=== PATIENT | male | born 1950 | race Caucasian/White ===

== ENCOUNTER 2020-05-22 20:42 | Inpatient (IN) | payer OTHER ==
[~2020-05-22] VITALS: Ht 170.2 cm; Wt 100.2 kg
[2020-05-22 20:46] VITALS: BP 153/62
[2020-05-22 21:30] LABS: ABSOLUTE NEUTROPHILS 5.6 thou/uL (1.4-8.2); BASOPHILS 0.6 % (0.0-2.0); EOSINOPHILS 8.8 % (0.0-3.0); HEMATOCRIT 24.4 % (42.0-52.0); HEMOGLOBIN 7.3 gm/dL (14.0-18.0); MCH 19.6 pg (26.0-34.0); MCHC 29.8 g/dL (28.0-37.0); MCV 65.7 fL (80.0-100.0); MONOCYTES 9.7 % (1.0-8.0); PLATELET COUNT 281 thou/uL (150-400); POLYS 58.9 % (36.0-66.0); RBC 3.72 mil/uL (4.50-6.00); RDW 22.4 % (10.5-14.5); WBC 9.5 thou/uL (4.0-11.0)
[2020-05-22 21:35] LABS: CALCIUM 9.4 mg/dL (8.5-10.1); CREATININE 2.6 mg/dL (0.7-1.3); POTASSIUM 5.4 mmol/L (3.5-5.1)
[2020-05-22 21:40] LABS: INR 1.1; PROTIME 11.6 Seconds (9.3-11.4)
[2020-05-22 21:41] LABS: ALBUMIN 3.3 g/dL (3.4-5.0); TOTAL BILIRUBIN 0.4 mg/dL (0.2-1.0); TOTAL PROTEIN 8.2 g/dL (6.4-8.2)
[2020-05-22] MEDS ORDERED: PROTONIX40 M2 PO (22:14)
[2020-05-22] MEDS ORDERED: LOPROX90 GM TOP (22:15)
[2020-05-22] MEDS ORDERED: KETOCONAZOLE 2%30 GM TOP (22:15)
[2020-05-22] MEDS ORDERED: FLONASE 0.05%50 MCG NARES (22:16)
[2020-05-22] MEDS ORDERED: ZYRTEC10 M5 PO (22:17)
[2020-05-22] MEDS ORDERED: OCUVITE ADULT1 EAC1 PO (22:17)
[2020-05-22 22:21] LABS: MICROCYTES 3+
[2020-05-22 22:23] LABS: HYPOCHROMASIA 3+; OVALOCYTES 1+; SCHISTOCYTES FEW; TARGET CELLS FEW
[2020-05-23] MEDS ORDERED: OCUVITE ADULT1 EAC1 PO (01:13)
[2020-05-23] MEDS ORDERED: LIPITOR 20 MG T20 M1 PO (01:13)
[2020-05-23] MEDS ORDERED: GLUMETZA500 PO (01:14)
[2020-05-23] MEDS ORDERED: LISINOPRIL20 MG PO (01:14)
[2020-05-23] MEDS ORDERED: GLYBURIDE 5 MG T5 M1 PO (01:15)
[2020-05-23] MEDS ORDERED: CARVEDILOL25 MG PO (01:15)
[2020-05-23] MEDS ORDERED: FUROSEMIDE 20 M20 MG PO (01:16)
[2020-05-23] MEDS ORDERED: HYDRALAZINE 10M10 MG PO (01:17)
[2020-05-23] MEDS ORDERED: POTASSIUM20 PO (01:18)
[2020-05-23] MEDS ORDERED: B12 ACTIVE1000 MCG PO (01:18)
[2020-05-23] MEDS ORDERED: VITAMIN D325 MC3 PO (01:19)
[2020-05-23] MEDS ORDERED: VITAMIN C500 M2 PO (01:19)
[2020-05-23] MEDS ORDERED: NF PO (01:22)
[2020-05-23] MEDS ORDERED: NF (01:22)
[2020-05-23 04:28] LABS: MCHC 30.9 g/dL (28.0-37.0); MCV 64.7 fL (80.0-100.0); RBC 3.08 mil/uL (4.50-6.00); RDW 22.7 % (10.5-14.5)
[2020-05-23 04:34] LABS: HEMATOCRIT 19.9 % (42.0-52.0); HEMOGLOBIN 6.2 gm/dL (14.0-18.0)
[2020-05-23 04:43] LABS: CALCIUM 8.7 mg/dL (8.5-10.1); CREATININE 2.3 mg/dL (0.7-1.3)
[2020-05-23 05:14] VITALS: BP 132/53
[2020-05-23 13:40] VITALS: BP 126/39
--- NOTE | 2020-05-23 13:49 | NUR ---
69 y/o male presenting to the ED c/o rectal bleeding. Pt states when he eats or drinks anything it comes out as bloody diarrhea ~15 minutes later. Of note patient reports a weight loss of 75 pounds in the last year. COVID PCR is pending in the ED after being received in the lab at 1113. The patient has been admitted for a lower GI Bleed with rectal mass of questionable mass verse inflammation, ARF, PUD and Lay choley done . Of note patient was admitted with a HgB of 6.2 and has been transfused. The ED records the patient as A&O x4. The face sheet reveals that next of kin and notification democrat is Guicho Buckely at [phone]. Case Management will follow for discharge needs.
[2020-05-23 14:25] VITALS: BP 137/53
--- NOTE | 2020-05-23 17:51 | NUR ---
PT ARRIVED FROM ER APPROX 1430. PT A& OX4. DENIES PAIN. AT APPROX 1445 CRITICAL LAB RESULT READ TO NURSE OF COVID POSITIVE. PHYSICIAN NOTIFIED. MUCK MINER NOTIFIED. PT TO TX TO 353 ONCE BED AVAILABILITY. REPORT GIVEN TO 3W RN.
[2020-05-23 18:40] VITALS: BP 155/61
--- NOTE | 2020-05-23 18:41 | NUR ---
PT TRANSFERRED FROM [facility] CCU TO [facility], VITAL SIGNS COMPELETED, GOT PT SETTLE IN RROM. BOWEL PREP STARTED, PT EDUCATED TO FINISH ALL GOLYTELY FOR TMR PROCEDURE. UP AD MARCELINO TO BATHROOM. REPORT GIVEN TO GAS TORCH BRAZIER ROBERT
[2020-05-23 19:48] VITALS: BP 130/63
[2020-05-24] VITALS (8 sets, daily range): BP systolic 119–146; BP diastolic 51–61
[2020-05-24 05:50] LABS: HEMATOCRIT 23.9 % (42.0-52.0); HEMOGLOBIN 7.1 gm/dL (14.0-18.0); MCH 20.4 pg (26.0-34.0); MCHC 29.9 g/dL (28.0-37.0); MCV 68.3 fL (80.0-100.0); RBC 3.5 mil/uL (4.50-6.00)
--- NOTE | 2020-05-24 05:51 | NUR ---
PT UP TO BATHROOM AD MARCELINO FOR GI PREP. MIRALAX GIVEN YESTERDAY. PT HAS BEEN NPO SINCE 2400 FOR COLONOSCOPY THIS AM 05/24. CAREPLAN UPDATED AND INTERVENTIONS IN PLACE. VSS AND TELE SHOWS SR.
[2020-05-24 05:58] LABS: CALCIUM 8.9 mg/dL (8.5-10.1); CREATININE 2.2 mg/dL (0.7-1.3); POTASSIUM 4.9 mmol/L (3.5-5.1)
--- NOTE | 2020-05-24 13:45 | NUR ---
CARE ASSUMED AT 0700, WAITING FOR PT TO GO DOWN FOR COLONOSCOPY.PT CONTINUES TO BE ON ROOM AIR, NO SIGNS OF DISTRESS. PT CONTINUE TO BLOODY STOOL. WILL CONTINUE TO MONITOR.
--- NOTE | 2020-05-24 14:40 | NUR ---
INITIAL ASSESSMENT: SW reviewed chart and spoke with nursing and attending physician. Pt placed in Enhanced Isolation due to COVID-19. Pt is afebrile and not requiring O2. Pt to have colonoscopy today. GI and surgery following. Pt with colon mass. SW placed call to pt's room. No answer. Per chart, pt is alert/orientated x 4. Pt lives at home. SW will follow up with pt at a later time to discuss discharge planning.
[2020-05-25 03:44] VITALS: BP 137/57
[2020-05-25 06:29] LABS: HEMATOCRIT 23.9 % (42.0-52.0); HEMOGLOBIN 7.3 gm/dL (14.0-18.0); MCH 20.7 pg (26.0-34.0); MCHC 30.4 g/dL (28.0-37.0); RBC 3.52 mil/uL (4.50-6.00); RDW 29.4 % (10.5-14.5); WBC 8.4 thou/uL (4.0-11.0)
[2020-05-25 06:47] LABS: CREATININE 2.1 mg/dL (0.7-1.3); POTASSIUM 4.4 mmol/L (3.5-5.1)
--- NOTE | 2020-05-25 07:22 | NUR ---
DIET MOVED AND ALLOWED PT TO EAT. AT FULL DINNER AND ASKED FOR SANDWICH TRAY AT 0230. AT 0630 PT WAS GETTING UP AND DISLODGE PIV. REMOVED AND AWAITING ORDERS TO SEE IF PT WILL DC BEFORE STARTING A NEW SITE. PT REQUESTED NOT TO BE STUCK. VSS, AND BLOODY STOOLS STILL HAPPENING.
[2020-05-25 07:31] VITALS: BP 142/60
[2020-05-25 09:33] LABS: % SATURATION 7 % (20-39); IRON 17 ug/dL (65-175); TIBC 236 ug/dL (250-450)
[2020-05-25 09:40] LABS: ABSOLUTE RETIC COUNT 0.0516 10^6/uL; OBSERVED RETIC COUNT 1.5 % (0.6-2.6)
[2020-05-25 10:55] LABS: FOLIC ACID 2.6 ng/mL (8.6-58.9)
[2020-05-25 11:27] VITALS: BP 139/58
[2020-05-25] MEDS ORDERED: FOLIC ACID1 MG PO (12:05)
[2020-05-25] MEDS ORDERED: IRON325 M1 PO (12:05)
--- NOTE | 2020-05-25 14:31 | NUR ---
DISCHARGE NOTE: SW reviewed chart and spoke with nursing and attending physician. Pt is medically stable for discharge home today. Plan for outpatient follow up with Hem/Onc, GI and colorectal surgery. SW spoke with pt via phone to discuss discharge plan. Pt is alert/orientated x 4. Pt reports that his son will be providing transportation home when discharge. No discharge needs identified at this time. SW is available to assist should needs arise.
[2020-05-25 15:35] VITALS: BP 139/58
[2020-05-25 15:37] VITALS: BP 139/58
--- NOTE | 2020-05-25 15:50 | NUR ---
ASSUMED CARE OF PT AT 0700. PT AOX4 IN NO ACUTE DISTRESS VOICING NO COMPLAINTS OTHER THAN WANTING TO GO HOME. OK FOR DISCHARGE PER PHYSICIAN. PATIENT UNDERSTANDING OF DC EDUCATION. WAITING ON SON FOR TRANSPORT.
--- NOTE | 2020-05-30 18:06 | PATH ---
[facility] [address] [place] [address] PATHOLOGY RPT PROCEDURE Name: MANJINDER BUCKLEY Room #: 353-P DIS IN M.R.#: [id number] Admission: 05/22/20 Date of : 46 Discharge: 05/25/20 Report #: [id number] Path Case #: [id number] [facility] Accession Number: [id number] . 01 Material submitted: . PART A: cecum - BX CECUM POLYP PART B: colon - BX TRANSVERSE COLON POLYP. Modifiers: transverse PART C: rectum - BX RECTAL MASS BIOPSIES . 01 Clinical history: . GI BLEED, ANEMIA, RECTAL MASS . 02 Diagnosis: A. Polyp, cecum polyp, endoscopic biopsy: - Inflamed hyperplastic polyp. - Negative for dysplasia. . B. Polyp, transverse colon polyp, endoscopic biopsy: - Tubular adenoma admixed with a hyperplastic polyp in the background. - Negative for high grade dysplasia. . C. Mass, rectal mass, endoscopic biopsy: - INVASIVE MODERATELY-DIFFERENTIATED ADENOCARCINOMA. - Background of tubular adenoma with high grade dysplasia. . (IUV:mml; 05/26/2020) QLM 05/26/2020 1539 Local . 02 Comment: The adenocarcinoma was co-reviewed by Dr. Kerri Holguin and she concurs with my interpretation. . Findings of this case are telephoned to Ms. Chhaya Hart, nurse practitioner, for Dr. Jorge Buckley at 3:30 p.m. on 05/26/2020. . MSI markers (4 immunohistochemical stains) are ordered on block C and the results of these will be reported in an addendum to follow. . (IUV:mml; 05/26/2020) . 02 Addendum: . This addendum is issued subsequent to reviewing properly-controlled MSI markers (four immunohistochemical stains) performed on block C1: . MICROSATELLITE INSTABILITY REPORT (MSI): . Per [facility] Cancer Committee protocol, MSI markers are performed. [address] [address] PATHOLOGY RPT PROCEDURE Name: MANJINDER BUCKLEY Room #: 353-P DIS IN M.R.#: [id number] Admission: 05/22/20 Date of : 46 Discharge: 05/25/20 Report #: [id number] Path Case #: [id number] . Reason for testing: To evaluate for evidence of defective mismatch repair proteins. Method: Immunohistochemical staining for the presence or absence of protein expression of one or more of the following MMR protein markers: MLH1, MSH2, MSH6 and PMS2. Tumor type: Invasive adenocarcinoma (block C1) . Results: MLH1 -Preserved MSH2 -Preserved MSH6 -Preserved PMS2 -Preserved . Mismatch Repair Status:MMR Proficient (MMR-P) . Interpretation: . (MMR-P) All four MMR proteins are preserved within tumor cells. This suggests the presence of normal DNA mismatch repair function within the tumor and an observable defect in mismatch repair is not identified. The likelihood that this patient has an inherited germline mutation syndrome due to defective mismatch repair is reduced but not totally eliminated. If the patient has a strong personal or family history of HPNCC/Burns syndrome related cancers (colorectal, endometrial, gastric, ovarian, pancreatic, ureter/renal pelvis, biliary tract, brain, small bowel and Salvador-Osvaldo syndrome), consider MSI testing by PCR methodology. Suggest clinical correlation and follow up. . These test results are designed for screening purposes only and are useful tools in identifying cancer patients that are more likely to have Burns Syndrome related diagnoses. Tests should be interpreted in the context of clinical findings, family history and laboratory data. Abnormal IHC results for MMR protein expression are not considered diagnostic for Burns Syndrome. . (IUV:mml; 05/30/2020) . . Professional services performed by [facility] at [facility], [address] [place] [address]. Technical services performed by [facility] at [address] [place] [address], [address] [address]. [facility]/05/30/2020 Addendum Electronically Signed by Marilee Sharma MD, Pathologist . 02 Electronically signed: . Marilee Sharma MD, Pathologist NPI- [id number] [facility] [address] [place] [address] PATHOLOGY RPT PROCEDURE Name: MANJINDER BUCKLEY Room #: 353-P [facility] IN M.R.#: [id number] Admission: 05/22/20 Date of : 46 Discharge: 05/25/20 Report #: [id number] Path Case #: [id number] . 01 Gross description: . A. Received in formalin labeled "Manjinder Buckley, biopsy cecum polyp" is a fragment of colmenares-brown soft tissue measuring 0.4 x 0.4 x 0.4 cm. The surgical resection margin is inked black The specimen is submitted entirely in A1. . B. Received in formalin labeled "Manjinder Buckley biopsy transverse colon polyp" is a fragment of colmenares-brown soft tissue measuring 0.7 x 0.5 x 0.4 cm. The surgical resection margin is inked black. The specimen is submitted entirely in B1. . C. Received in formalin labeled "BuckleyManjinder biopsy rectal mass biopsies" are multiple fragments of colmenares-brown soft tissue measuring in aggregate 1.3 x 0.3 x 0.3 cm. The specimen is submitted entirely in C1.([facility]; 05/25/2020) GZA/GZA 05/25/2020 1735 Local . 02 Pathologist provided ICD-10: K63.5, D12.3, C20, D12.8 . 02 CPT . 755638, 395622, 075392, D08991, V32243 Specimen Comment: A courtesy copy of this report has been sent to [phone] Specimen Comment: [phone], Specimen Comment: Report sent to ,DR SERNA / DR NAYLOR Performed at: [address], [place] [id number] MD Sathya Scott MD Phone: [phone] Performed at: [address] [id number] MD Marilee Sharma MD Phone: [phone]
--- NOTE | 2020-06-01 07:10 | HC ---
[facility] [place] [address] [place] [address] CONSULTATION Name: SARAH ROBIN Room #: 353-P [facility] IN M.R.#: [id number] Admission: 05/22/20 Attend Phys: Sai Victoria MD Discharge: 05/25/20 Date of : 46 Report #: [id number] THIS REPORT FOR: cc: Georgina Mercado MD, Cassandra MD McKittrick,Shawn Stiles MD ~ DATE OF SERVICE: 05/25/2020 REASON FOR CONSULTATION: Rectal mass. HISTORY OF PRESENT ILLNESS: The patient is a very pleasant 69-year-old gentleman from the [place] area who has had about an 80-pound weight loss and also bloody diarrhea or diarrhea with some blood in it for several months. He underwent a colonoscopy yesterday on 05/24/2020 which found a firm rectal mass on digital rectal exam. There was also a 10 mm rectal mass, was circumferential partially obstructing appears to be malignant, was about the dentate line, but good views, difficult to obtain. Pathology is pending. The patient denies fevers or chills. Does have slightly queasy stomach, did have the blood in his urine and stool. He does have some weakness. His sugars from his diabetes have been running low. No new arm or leg swelling. PAST MEDICAL HISTORY: Notable for history of a GI bleed recently. Also, found to have renal insufficiency, unsure baseline. History of hypertension, history of hyperlipidemia, history of diabetes type 2, history of duodenal ulcer, history of hernia repairs times about 2-3, history of nephrolithiasis, status post stent and removal, history of cholecystectomy. SOCIAL HISTORY: No recent alcohol. I do not think he is a recent smoker. No street drugs. 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 He enjoys working with firearms and has ____ 30 or 40, everything from centerfire to rimfire to black powder. He has some quite unusual/rare guns. I think he is no longer . I am not sure if his had . He does have a son in town. Also, has 4 granddaughters, some are in high school, some are in college. CURRENT MEDICATIONS: Currently include pantoprazole 40 b.i.d. and Zofran p.r.n. and now iron sucrose 200 mg daily. LABORATORY DATA: Review notable for creatinine on admit 2.6, today 2.1. Transaminases normal. Iron panel pending. INR normal. White count 8.4, hemoglobin 7.3 on admit. MCV 65.7 on admit. RDW 22.4 on admit. Platelets 281 on admit. Differential nonacute. There were a few extra monocytes. Also, note CEA was 63.5. Coronavirus-19 PCR was positive. The patient says he does not go anywhere, he is not sure why he is positive. Also, lab ordered and pending his B12, folate, erythropoietin and retic count. Imaging notable for a CAT scan of [facility] [address] [place] [address] CONSULTATION Name: SARAH ROBIN Room #: 353-P DIS IN M.R.#: [id number] Admission: 05/22/20 Attend Phys: Sai Victoria MD Discharge: 05/25/20 Date of : 46 Report #: [id number] abdomen and pelvis done for rectal bleeding showing the circumferential rectal wall thickening that is nonspecific, scattered colonic diverticulosis, low attenuation right renal mass, likely cyst measuring 3.5 increased in size from 2.9 in the past. Discussed with the patient that we are very concerned this may represent a rectal carcinoma, most likely adenocarcinoma, but we need to make sure it is not an infection or gastrointestinal stromal tumor or lymphoma or other pathology. We will also need to complete staging, which would likely include an MRI pelvis with rectal coil, also a CT chest or a PET scan to look for distant disease given the high elevation of the CEA. Discussed that if this is adenocarcinoma, this would likely be treated, if localized, with concurrent chemo and radiation therapy followed possibly by Surgery followed by additional chemotherapy, he would like to confirm with family members. I told him this is very appropriate plus or suggestions may change once we have additional information. ASSESSMENT AND PLAN: 1. Nonobstructing circumferential rectal mass. Await pathology as outpatient, should also have CT chest and consider MRI pelvis with rectal coil and perhaps PET scan. Also, consider consultation with colorectal surgeon, Dr. Short if does not feel comfortable. Also, consider consultation with Radiation Oncology. The patient should call next week regarding pathology. 2. Iron deficiency related to rectal mass. We will try to give IV iron here and may continue same as outpatient. 3. COVID positive. We will need to make sure the patient is recovering from his COVID infection. He is asymptomatic and I am not sure where he would have gotten it. 4. Hypertension. Defer meds to others. 5. Hyperlipidemia. Defer meds to others. 6. Ulcer prophylaxis, probably ulcer sarah. 7. Family history of GI cancers. We will need to confirm. <ELECTRONICALLY SIGNED> By: Shawn Gant MD 06/01/20 0710 0910 1021 Shawn Gant MD /courtney
== END 2020-05-25 15:53 | disposition home or self-care (01) | DRG 374 ==
LOC: ER 20:42 → EROBS 23:12 → 3W 23:12 → 2N 05-23 14:22 → 3W 05-23 18:37
PROVIDERS: Emergency Medicine; Internal Medicine Hematology & Oncology; Nurse Practitioner Family; ADMIT Hospitalist; ATTEND Hospitalist
PROC: 30233N1 Transfusion of Nonautologous Red Blood Cells into Peripheral Vein, Percutaneous Approach (ICD-10-PCS; principal; 2020-05-23)
PROC: 0DBP8ZX Excision of Rectum, Via Natural or Artificial Opening Endoscopic, Diagnostic (ICD-10-PCS; 2020-05-24)
PROC: 0DBL8ZZ Excision of Transverse Colon, Via Natural or Artificial Opening Endoscopic (ICD-10-PCS; 2020-05-24)
PROC: 0DBH8ZZ Excision of Cecum, Via Natural or Artificial Opening Endoscopic (ICD-10-PCS; 2020-05-24)
DX: C20 Malignant neoplasm of rectum (principal); K57.31 Diverticulosis of large intestine without perforation or abscess with bleeding; U07.1 COVID-19; K26.4 Chronic or unspecified duodenal ulcer with hemorrhage; N17.0 Acute kidney failure with tubular necrosis; D62 Acute posthemorrhagic anemia; K56.690 Other partial intestinal obstruction; N17.9 Acute kidney failure, unspecified; D12.0 Benign neoplasm of cecum; D12.3 Benign neoplasm of transverse colon; R19.09 Other intra-abdominal and pelvic swelling, mass and lump; I10 Essential (primary) hypertension; M19.90 Unspecified osteoarthritis, unspecified site; D49.0 Neoplasm of unspecified behavior of digestive system; Z77.22 Contact with and (suspected) exposure to environmental tobacco smoke (acute) (chronic); K62.9 Disease of anus and rectum, unspecified; E78.5 Hyperlipidemia, unspecified; E11.9 Type 2 diabetes mellitus without complications; E66.9 Obesity, unspecified; Z87.442 Personal history of urinary calculi; Z88.8 Allergy status to other drugs, medicaments and biological substances; Z90.49 Acquired absence of other specified parts of digestive tract; Z68.34 Body mass index [BMI] 34.0-34.9, adult; Z87.11 Personal history of peptic ulcer disease
CPT/HCPCS: 10879; 62110; 62900